=== PATIENT | female | born 1990 | race Caucasian/White ===

== ENCOUNTER 2022-10-16 09:00 | Emergency (ER) | payer BC, SELFPAY ==
--- NOTE | 2022-10-16 09:00 | DI.RAD_ITS ---
Exam(s) XR LUMBAR SPINE COMPLETE EXAM: XR LUMBAR SPINE COMPLETE CLINICAL HISTORY: Low back pain. TECHNIQUE: 2D digital imaging was performed. COMPARISON: No exams were available for comparison FINDINGS: Five views: There are 5 vertebrae of lumbar configuration. There are rudimentary appearing 12th ribs. No scolio sis. No compression fractures, listhesis, nor disc space narrowing. However, on the lateral view there is pars defects at L2 level and there is some nearby radiopaque hardware noted bilaterally at this leve l but not appearing to traverse the defect(s). There are no osseous lesions. No obvious radiographi c evidence of osteomyelitis. No facet arthropathy evident. Sacroiliac joints appear unremarkable. IMPRESSION: Abnormal L2 findings as described above. Correlation with past surgical history in the back recommen ded. DATA REPOSITORY: RADIATION DOSE DELIVERED:
[2022-10-16 09:03] VITALS: BP 128/80; PULSE 94; RESP 16; TEMP 35.9; O2SAT 96
--- NOTE | 2022-10-16 09:15 | ED.GENADUL_ITS ---
Discharge Plan Disposition Patient Disposition: Home Discharge Details Clinical Impression: Low back pain, UTI (urinary tract infection) Primary Care Provider: Maite,Local ED Provider: Fatoumata Odell Home Meds and New Rx's Prescriptions: New prednisone 20 mg tablet 40 mg PO DAILY 6 Days Qty: 12 0RF Rx Instructions: Take 2 tabs daily x 3 days, Take 1 tabs daily x 3 days cephalexin 500 mg tablet 500 mg PO BID 7 Days Qty: 14 0RF Rx Instructions: Take 1 tablet by mouth twice daily for 7 days No Action Nexplanon 68 mg Implant 1 implant SUBDERMAL DIRECTED Discharge Instructions Instructions: Urinary Tract Infection in Women (ED), Low Back Strain (ED) Additional Instructions: You were given the first dose of the antibiotic and steroid here in the department. Prescription was sent to the pharmacy on file. Please take the medications as directed. You may also alternate ice and heat. Please return to the ER or be seen sooner for any loss of bowel or bladder control, worsening pain, feeling as if you cannot urinate or have a bowel movement. Please follow-up with neurosurgery, Ortho and or your PCP to discuss further imaging. Follow up with primary care provider in 3-5 days. Return to ED sooner if any wo rsening or concerns. Increase oral fluids. Please take Tylenol or Ibuprofen with food every 4-6 hours as needed for pain and swelling. Referrals: [facility] [Outside] - 1 week Jordon Ochoa MD [ [facility] STAFF PHYSICIAN] - 1 week Medical Decision Making 32-year-old female presents to the ER with a chief complaint of lower back pain which radiates into her legs down into the bottoms of her feet she reports numbness and tingling. She does have a history of spina bifida and to previous back surgeries. Denies any loss of bowel or bladder control denies any saddle anesthesia. She usually takes Advil, I did offer her some analgesics which she declines at this time. Denies any problems urinating or any other associated symptoms. L-spine x-rays ordered, a urine and urinalysis. Patient declined pain medication at this time. X-ray shows pars defect at L2 level and some nearby radiopaque hardware. No osseous lesions no evidence of osteomyelitis, no facet arthropathy evident. CT L-spine ordered to further evaluate back pain. Upon further discussion with patient she reports that she has had 2 syncopal episodes within the last couple weeks while sitting or laying down. CBC CMP ordered and imaging performed on CT L-spine she verbalized understanding. She still declines any analgesia at this time. Patient is requesting some ibuprofen, meds ordered. Awaiting CT result. CT results noted below, will have patient follow-up with neurosurgery at [facility] and/or Ortho. Will discuss strict return instructions to return if any loss of bowel or bladder control or any worsening. This text was generated using [employer] system, please disregard any oddities of phrase or misspellings. Imaging Data Radiologic Study #2: Imaging: CT Scan Radiologist's impression: CT LUMBAR SPINE WO EXAM: ? CT LUMBAR SPINE WO CLINICAL HISTORY:? Lower back pain. ? TECHNIQUE:? Imaging Protocol: Axial computed tomography images with coronal and sagittal reformatted images were created and reviewed COMPARISON:? CR XR LUMBAR SPINE COMPLETE from 10/16/2022? FINDINGS: Bones:? No compression fractures nor listhesis evident.? No significant disc space narrowing..? There are no lytic osseous lesions evident.There is bilateral hardware at the level of the inferior articular process is of L2.? There are transverse lines through the pars interarticularis bilaterally at this L2 level, this just above the hardware level. With respect to the discs spaces,? there are no disc herniations nor central spinal canal stenosis in the lumbosacral spinal canal.? No significant foraminal stenosis.? No significant facet arthropathy evident. Some sclerosis is seen on the iliac side of the sacroiliac joints, possibly indicating an element of sacroiliitis.? There is no ankylosis of the SI joints. PARASPINAL SOFT TISSUES: No significant incidental paraspinal soft tissue findings. IMPRESSION: 1. 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 No listhesis evident.? No prominent disc herniation.? No central canal stenosis in the lumbar spine.? No obvious foraminal stenosis. 2. Given the past spinal history here recommend follow-up neuro surgery consultation and possible follow-up MRI. Lab Data Lab results reviewed: Yes I reviewed the patient's lab results. Labs: Laboratory Tests Range/Units 10/16/22 10/16/22 10/16/22 09:30 10:55 10:55 WBC (4.4-10.8) 10^3/uL 6.56 RBC (3.93-5.22) 10^6/uL 4.74 Hgb (11.2-15.7) g/dL 14.0 Hct (36.0-46.0) % 41.3 MCV (80-95) fL 87 MCH (27.0-33.0) pg 29.5 MCHC (32.0-36.0) % 33.9 RDW (11.7-14.6) % 11.9 Plt Count (130-400) 10^3/uL 185 MPV (8.0-11.0) fL 10.4 Immature Gran % 0.3 Neutrophils % 69.9 Lymphocytes % 20.3 Monocytes % 5.6 Eosinophils % 3.7 Basophils % 0.2 Nucleated RBC % (0.0-0.3) % 0.0 Absolute Neutrophils (1.2-6.7) 10^3/uL 4.59 Absolute Lymphocytes (1.2-3.4) 10^3/uL 1.33 Absolute Monocytes (0.1-0.8) 10^3/uL 0.37 Absolute Eosinophils (0.0-0.7) 10^3/uL 0.24 Absolute Basophils (0.0-0.2) 10^3/uL 0.01 Sodium (136-145) mmol/L 139 Potassium (3.5-5.1) mmol/L 4.0 Chloride (98-107) mmol/L 104 Carbon Dioxide (21.0-32.0) mmol/L 26.7 Anion Gap (3-11) mmol/L 8.3 BUN (7-18) mg/dL 12 Creatinine (0.55-1.02) mg/dL 0.7 Est GFR (CKD-EPI 2020) (mL/min/1.73m2) 119.24 Glucose (74-106) mg/dL 104 Calcium (8.5-10.1) mg/dL 9.4 Total Bilirubin (0.2-1.0) mg/dL 0.5 AST (15-37) U/L 14 L ALT (14-59) U/L 23 Alkaline Phosphatase (46-116) U/L 47 Total Protein (6.4-8.2) g/dL 7.7 Albumin (3.4-5.0) g/dL 4.3 Urine Color (Yellow) Yellow Urine Clarity (Clear) Clear Urine pH (5-8) 7.0 Ur Specific [place] (1.005-1.025) 1.015 Urine Protein (Negative) mg/dL Negative Urine Ketones (Negative) mg/dL Negative Urine Blood (Negative) Trace-intact H Urine Nitrite (Negative) Negative Urine Bilirubin (Negative) Negative Urine Urobilinogen (Up to 0.2) mg/dL 0.2 Ur Leukocyte Esterase (Negative) Small H Urine RBC (0-2) HPF 5-10 H Urine WBC (0-5) HPF 0-2 Ur Epithelial Cells (Negative) HPF Many Urine Crystals (Negative) HPF Negative Urine Bacteria (Negative) HPF Few Urine Casts (Negative) LPF Negative Urine Mucus (Negative) Negative Ur Culture Indicated? No/Sq. Contamination Urine Glucose (Negative) mg/dL Negative HPI General Mode of arrival: ambulatory . Date/Time Provider Initiated Documentation: 10/16/22 09:00 . Limitations to Documentation: no limitations . Information obtained by: patient, RN notes reviewed and old records reviewed . HPI Narrative: 32-year-old female presents to the ER with a chief complaint of lower back pain which radiates into her legs down into the bottoms of her feet she reports numbness and tingling. She does have a history of spina bifida and to previous back surgeries. Denies any loss of bowel or bladder control denies any saddle anesthesia. She usually takes Advil, I did offer her some analgesics which she declines at this time. Denies any problems urinating or any other associated symptoms. Related Data Home Medications Medication Instructions Recorded Confirmed cephalexin 500 mg tablet 500 mg PO BID uti 7 days #14 tabs 10/16/22 etonogestrel 68 mg subdermal 1 implant subdermal DIRECTED 10/16/22 10/16/22 implant (Nexplanon) prednisone 20 mg tablet 40 mg PO DAILY Lumbago 6 days #12 10/16/22 tabs Previous Rx's Medication Instructions Recorded cephalexin 500 mg tablet 500 mg PO BID uti 7 days #14 tabs 10/16/22 prednisone 20 mg tablet 40 mg PO DAILY Lumbago 6 days #12 10/16/22 tabs Allergies Allergy/AdvReac Type Severity Reaction Status Date / Time vancomycin Allergy Intermediate red face / Unverified 10/16/22 09:10 flushed / hives clindamycin AdvReac Intermediate redness Unverified 10/16/22 09:11 and hives General Stated Complaint: Nk/Back Pain DIANA: 4 Review of Systems All systems reviewed & are unremarkable except as noted in HPI and below PFSH All Active Problems (Updated 10/16/22 @ 12:15 by Fatoumata Odell NP) Low back pain (Acute) UTI (urinary tract infection) (Acute) Social History Smoking/Tobacco Use Status: Never Smoking risk assessment performed?: Yes Drug use: Never Substance use type: does not use Do you feel safe at home: Yes Do you feel safe in your relationship?: Yes Exam Narrative Exam Narrative: Constitutional: Alert and oriented x3. Appears stated age. Normal body habitus. Head: Normocephalic, no trauma. Eyes: Pupils PERRL, Red reflex noted, EOM's intact. Eyelids symmetrical without lesions, discharge, or swelling. ENT: Bilateral TM's WNL, External ear normal to inspection, no mastoid TTP, swelling, or erythema, Nasal turbinates WNL, no nasal discharge. Normal dentition, Posterior pharynx WNL, no exudate. Chest: RRR, Normal S1, S2, distal pulses intact. Resp: Lungs clear to auscultation bilaterally, no wheezes, rales, or rhonchi. Abdomen: Soft, non-distended, Normoactive bowel sounds all 4 quads. Musculoskeletal: Normal gait, 5/5 strength to all four extremities. Skin: No suspicious rashes or lesions. Capillary refill less than 2 sec. Neurologic: Cranial nerves II-XII intact. Alert and oriented x 3. Motor: No deficits noted. Sensory: Intact bilaterally all 4 extremities. Reflexes: DTR's intact bilaterally.. Hematologic/Lymphatic: No ecchymosis, no lymphadenopathy. Course Vital Signs Vital signs: Vital Signs Temperature 35.9 C L 10/16/22 09:03 Pulse 94 H 10/16/22 09:03 Respiratory Rate 16 10/16/22 09:03 Blood Pressure 128/80 10/16/22 09:03 Pulse Oximetry 96 10/16/22 09:03 Temperature 35.9 C L 10/16/22 09:03 Temperature Source Tympanic 10/16/22 09:03 Pulse 94 H 10/16/22 09:03 Respiratory Rate 16 10/16/22 09:03 Blood Pressure 128/80 10/16/22 09:03 Blood Pressure Position Sitting 10/16/22 09:03 Pulse Oximetry 96 10/16/22 09:03 Oxygen Delivery Method Room Air 10/16/22 09:03 Oxygen Flow Rate 0 10/16/22 09:03 Pain Level 8 10/16/22 09:03
--- NOTE | 2022-10-16 10:15 | DI.CT_ITS ---
Exam(s) CT LUMBAR SPINE WO EXAM: CT LUMBAR SPINE WO CLINICAL HISTORY: Lower back pain. TECHNIQUE: Imaging Protocol: Axial computed tomography images with coronal and sagittal reformatted images were created and reviewed COMPARISON: CR XR LUMBAR SPINE COMPLETE from 10/16/2022 FINDINGS: Bones: No compression fractures nor listhesis evident. No significant disc space narrowing.. There are no lytic osseous lesions evident.There is bilateral hardware at the level of the inferior articu lar process is of L2. There are transverse lines through the pars interarticularis bilaterally at th is L2 level, this just above the hardware level. With respect to the discs spaces, there are no disc herniations nor central spinal canal stenosis in the lumbosacral spinal canal. No significant foraminal stenosis. No significant facet arthropathy evident. Some sclerosis is seen on the iliac side of the sacroiliac joints, possibly indicating an element of sacroiliitis. There is no ankylosis of the SI joints. PARASPINAL SOFT TISSUES: No significant incidental paraspinal soft tissue findings. IMPRESSION: 1. 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 No listhesis evident. No prominent disc herniat ion. No central canal stenosis in the lumbar spine. No obvious foraminal stenosis. 2. Given the past spinal history here recommend follow-up neuro surgery consultation and possible fol low-up MRI. Called by myself to ER provider. RADIATION DOSE DELIVERED: 592.38mGy.cm Total DLP DATA REPOSITORY: All CT scans at this facility are submitted to the National Radiology Data Registry (NRDR) Dose Index Registry (DIR) with the [employer] ([employer]). RADIATION OPTIMIZATION: All CT scans at this facility use at least one of these dose optimization te chniques: automated exposure control; mA and/or kV adjustment per patient size (includes targeted exa ms where dose is matched to clinical indication); or iterative reconstruction.
[2022-10-16 10:24] LABS: Bilirubin Negative (Negative); Blood Trace-intact (Negative); Clarity Clear (Clear); Glucose Negative (Negative); Ketones Negative (Negative); Leukocyte Esterase Small (Negative); Nitrite Negative (Negative); Specific Gravity 1.015 (1.005-1.025); Urobilinogen 0.2 mg/dL (Up to 0.2)
[2022-10-16 10:29] LABS: Bacteria Few HPF (Negative); C & S Indicated? No/Sq. Contamination; Casts Negative LPF (Negative); Crystals Negative HPF (Negative); Epithelial Cells Many HPF (Negative); Mucus Negative (Negative); WBC 0-2 HPF (0-5)
[2022-10-16] MEDS: Ibuprofen 600 MG TAB PO (10:48)
[2022-10-16 11:02] LABS: Abs Immature Grans 0.02 10^3/uL (0.0-0.06); Absolute Basophil Count 0.01 10^3/uL (0.0-0.2); Absolute Eosinophil Count 0.24 10^3/uL (0.0-0.7); Absolute Lymphocyte Count 1.33 10^3/uL (1.2-3.4); Absolute Monocyte Count 0.37 10^3/uL (0.1-0.8); Absolute Neutrophil Count 4.59 10^3/uL (1.2-6.7); Basophils % 0.2; Eosinophils % 3.7; HCT 41.3 % (36.0-46.0); Immature Grans % 0.3; Lymphocytes % 20.3; MCH 29.5 pg (27.0-33.0); MCHC 33.9 % (32.0-36.0); MCV 87 fL (80-95); MPV 10.4 fL (8.0-11.0); Monocytes % 5.6; Neutrophils % 69.9; Platelet Count 185 10^3/uL (130-400); RBC 4.74 10^6/uL (3.93-5.22); RDW 11.9 % (11.7-14.6); RDW-SD 38.5 fL; WBC 6.56 10^3/uL (4.4-10.8)
[2022-10-16 11:25] LABS: ALT 23 U/L (14-59); AST 14 U/L (15-37); Albumin 4.3 g/dL (3.4-5.0); Alkaline Phosphatase 47 U/L (46-116); Anion Gap 8.3 mmol/L (3-11); BUN 12 mg/dL (7-18); Bilirubin, Total 0.5 mg/dL (0.2-1.0); CO2 26.7 mmol/L (21.0-32.0); CREATININE 0.7 mg/dL (0.55-1.02); Calcium 9.4 mg/dL (8.5-10.1); Chloride 104 mmol/L (98-107); Estimated GFR 119.24 (mL/min/1.73m2); Glucose 104 mg/dL (74-106); Sodium 139 mmol/L (136-145); Total Protein 7.7 g/dL (6.4-8.2)
[2022-10-16] MEDS: Cephalexin 500 MG CAP, 2 CAPS/BTL PO (12:27)
[2022-10-16] MEDS: Cephalexin 500 MG CAP PO (12:27)
[2022-10-16] MEDS: predniSONE 20 MG TAB 40 MG PO (12:28)
--- NOTE | 2022-10-17 08:28 | NUR.NOTE ---
Nursing Note: pt called ED stating [facility] neuro has not received her referral yet. this nurse contacted care management to followup with this and the patient.
== END 2022-10-16 12:38 | disposition home or self-care (01) ==
PROVIDERS: Emergency Provider Registered Nurse Emergency
DX: N39.0 Urinary tract infection, site not specified (principal); R20.2 Paresthesia of skin; M54.50 Low back pain, unspecified
CPT/HCPCS: 80053; 81025; 99284; 72110; 72131; 81003; 81015; 85025; 87086; J7512

== ENCOUNTER 2022-11-05 03:10 | Outpatient (CLI) | payer BC, SELFPAY ==
[2022-11-05 17:25] LABS: C-Reactive Protein 0.12 mg/dL (0.0-0.3)
[2022-11-10 09:51] LABS: HLA-B27 Result Negative
== END 2022-11-05 03:11 | disposition home or self-care (01) ==
LOC: LBO 03:10
PROVIDERS: PCP Family Medicine; Visit Provider Family Medicine
DX: M54.59 Other low back pain (principal); M53.3 Sacrococcygeal disorders, not elsewhere classified; F41.8 Other specified anxiety disorders
CPT/HCPCS: 36415; 86812; 86140

== ENCOUNTER 2023-04-23 17:49 | Outpatient (REF) | payer BC, SELFPAY ==
[2023-04-23 21:33] LABS: Bacteria Negative HPF (Negative); C & S Indicated? C&S Done As Ordered; Crystals Negative HPF (Negative); Epithelial Cells Rare HPF (Negative); Mucus Negative (Negative); RBC 0-2 HPF (0-2); WBC 0-2 HPF (0-5)
== END 2023-04-23 17:50 | disposition home or self-care (01) ==
LOC: LBN 17:49
PROVIDERS: PCP Family Medicine; Visit Provider Physician Assistant Medical
DX: R30.9 Painful micturition, unspecified (principal); R82.89 Other abnormal findings on cytological and histological examination of urine
CPT/HCPCS: 81015; 87086